=== PATIENT | male | born 2000 | race Two or more races ===

== ENCOUNTER 2018-10-05 20:16 | Emergency (ER) | payer OTHER ==
[~2018-10-05] VITALS: Ht 177.8 cm; Wt 86.2 kg
== END 2018-10-05 21:26 | disposition home or self-care (01) ==
LOC: ER 20:16
DX: L55.0 Sunburn of first degree (principal); L56.8 Other specified acute skin changes due to ultraviolet radiation; X32.XXXA Exposure to sunlight, initial encounter; Y93.89 Activity, other specified; Y92.832 Beach as the place of occurrence of the external cause; Y99.8 Other external cause status